=== PATIENT | male | born 1970 | race Caucasian/White ===

== ENCOUNTER → 2017-08-22 | Outpatient (CLI) | payer BC | LOC: RAD 14:49 | PROVIDERS: ATTEND Internal Medicine | DX: R06.02 Shortness of breath (principal) | CPT/HCPCS: 93306 ==

== ENCOUNTER → 2017-08-22 | Outpatient (CLI) | payer SELFPAY ==
--- NOTE | 2017-08-22 15:44 | CT ---
Indication: Family history of heart disease Exam: Cardiac CT calcium scoring Technique: Thin-section axial EKG gated spiral images were obtained through the heart without contras t. Calcium scoring was calculated for the CT software. Findings: The visualized mediastinum is unremarkable. The visualized lungs acute [place] are clear. Th e right RCA score is 0. The LAD score is 1. Total calcium score of 1 which is between the 25th and 50 th percentile for males between the ages of 40 and 49. Impression: Minimal identifiable plaque. The risk of coronary artery disease is very unlikely, less t rolon 10%. Reported By:
== END ==
LOC: RAD 14:53
PROVIDERS: ATTEND Internal Medicine
DX: Z13.6 Encounter for screening for cardiovascular disorders (principal)